=== PATIENT | female | born 1935 | race Caucasian/White ===

== ENCOUNTER 2020-04-02 07:34 | Outpatient (CLI) | payer MEDICARE, OTHER ==
[2020-04-02 14:18] LABS: Hemoglobin 10.5 g/dL (12.0-16.0); Mean Corpuscular HGB CONC 30.7 g/dL (32.0-36.0); Mean Corpuscular Hemoglobin 25.8 pg (27.0-31.0); Mean Corpuscular Volume 84.1 fL (78.0-98.0); Mean Platelet Volume 9.1 fL (7.4-10.4); Platelet Count 282 thou/uL (130-400); RBC Distribution Width 14.6 % (11.5-14.5); Red Blood Cell (RBC) Count 4.05 mill/uL (4.20-5.40); White Blood Cell (WBC) Count 6.2 thou/uL (4.8-10.8)
[2020-04-02 14:26] LABS: PTT 29.4 sec (22.9-36.1); Prothrombin Time 13.4 sec (12.0-14.7)
[2020-04-03 16:05] LABS: SARS-CoV-2 MS2 Positive; SARS-CoV-2 N Gene Negative; SARS-CoV-2 S Gene Negative; SARS-CoV-2 by NAA Not Detected (NotDetected); SARS-CoV-2 orf1ab Negative
== END 2020-04-02 07:35 | disposition home or self-care (01) ==
LOC: LABBT 07:34
PROVIDERS: ATTEND Neurological Surgery
DX: Z01.812 Encounter for preprocedural laboratory examination (principal); Z20.828 Contact with and (suspected) exposure to other viral communicable diseases; M48.061 Spinal stenosis, lumbar region without neurogenic claudication
CPT/HCPCS: 85027; 85610; 85730; U0003; 87635

== ENCOUNTER 2020-04-05 05:44 | Day surgery (SDC) | payer MEDICARE ==
--- NOTE | 2020-04-03 17:24 | HP ---
REASON FOR HISTORY AND PHYSICAL: Surgery on 04/05/2020, case #[id number]. HISTORY OF PRESENT ILLNESS: Ms. Hebert is an 84-year-old female with chief complaint of lower back and leg pain (right greater than left) for 2 years. Pain radiates to her gluteal muscles, thighs, and calf especially when standing more than 5 minutes. Sitting and leaning forward alleviates her pain. She does report there is some weakness in her legs. Denies bowel or bladder dysfunction. REVIEW OF SYSTEMS: CONSTITUTIONAL: Denies fever or chills. ENT: Denies change in vision or hearing. CARDIAC: Denies chest pain, shortness of breath, or diaphoresis. PULMONARY: Denies shortness of breath, cough, or hemoptysis. GI: Denies fecal incontinence, abdominal pain, nausea, vomiting, diarrhea, change in stool formation and consistency. : Denies urinary incontinence, trouble with urination, frequency of urination, or bloody urine. SKIN: Denies skin rash, bruising, bleeding, or skin masses. MUSCULOSKELETAL: As per history of present illness. NEUROLOGICAL: As per history of present illness. PSYCHOLOGICAL: Denies anxiety, depression, or behavior changes. MEDICATIONS: 1. Hydrocodone/acetaminophen 5/325 mg. 2. Hydralazine 50 mg. 3. Eliquis 5 mg. 4. Gabapentin 100 mg. 5. Metoprolol 25 mg. 6. Amlodipine 10 mg. 7. Fluzone 0.5 mL suspension. 8. Valsartan 160 mg. 9. Pioglitazone 15 mg. 10. Metformin 1000 mg. 11. Ursodiol 300 mg. MEDICAL HISTORY: 1. Arthritis. 2. Chronic pain. 3. Diabetes. 4. Heart disease. 5. High blood pressure. 6. Pacemaker. SURGICAL HISTORY: 1. Bilateral knee surgery. 2. Pacemaker. FAMILY HISTORY: Father , diagnosed with diabetes. Mother . Children alive. ALLERGIES: NO KNOWN DRUG ALLERGIES. HOSPITALIZATIONS: Bilateral knee surgery. PHYSICAL EXAMINATION: VITAL SIGNS: Weight 162 pounds, height 71 inches, BMI 22.59. HEENT: Pupils are equal. Extraocular movements are intact. NECK: Soft and supple. No masses are noted. Range of motion is intact and nonpainful. NEUROLOGICAL: Awake, alert, and oriented x3. Memory, attention, fund of knowledge, and language are normal. Cranial nerves are normal. Gait and station are normal. Motor exam; normal strength in the iliopsoas, quadriceps, hamstrings, anterior tib, EHL, gastrocs, and toe flexors. Sensory exam; mild stocking distribution in foot, numbness. IMAGING DATA: L-spine myelogram; there is [id number] stenosis at L3-L4 and L4-L5. L-spine x-ray, flexion-extension is stable. ASSESSMENT: 1. Spondylolisthesis without myopathy or radiculopathy. 2. 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 PLAN: 1. Laminectomy L3-L5. 2. Stop Eliquis 1 week prior to surgery. May resume 2 weeks after surgery. 3. Anesthesia clearance. 4. Preop labs; CBC, PT, PTT, INR, COVID-19 testing. INFORMED CONSENT: We discussed the indications, risks, benefits, alternatives, and expected results from surgery. The risks discussed included, but were not limited to, bleeding, infection, CSF leak, nerve damage, weakness, incontinence, cauda equina injury, arachnoiditis, paralysis, ventilator dependency, wheelchair dependency, loss of vision, cardiopulmonary complications of anesthesia, or . Long-term complications discussed included, but were not limited to, spinal instability and future surgery. She understands the risks and is willing to proceed. Job ID: [id number] [facility]
[2020-04-04 08:53] VITALS: BMI 23.7
[2020-04-05] MEDS ORDERED: Thrombin 5000 UNITS/5 ML VIAL ONE (06:11)
[2020-04-05] MEDS ORDERED: Bupivacaine HCl 0.5%/Epinephrine 1:200,000/PF 30 ml Vial ONE (06:11)
[2020-04-05] MEDS ORDERED: Fentanyl 100 MCG/2 ML VIAL ONE ×3 (06:53→10:44)
[2020-04-05 07:07] LABS: Anion Gap 17 mmol/L (10-20); BUN (Urea Nitrogen) 27 mg/dL (9.8-20.1); Calc. Creatinine Clearance 52 mL/min (70-130); Calcium 9.8 mg/dL (7.8-10.44); Carbon Dioxide 21 mmol/L (23-31); Chloride 103 mmol/L (98-107); Estimated GFR-MDRD 56; Glucose 125 mg/dL (83-110); Potassium 4.3 mmol/L (3.5-5.1); Sodium 137 mmol/L (136-145)
[2020-04-05] MEDS ORDERED: HYDROmorphone 2 MG/ML VIAL SLOW IVP PRN (08:12)
[2020-04-05] MEDS ORDERED: Promethazine HCl 25 MG/ML VIAL SLOW IVP PRN (08:12)
[2020-04-05] MEDS ORDERED: Ondansetron HCl/PF 4 MG/2 ML Vial IVP PRN (08:12)
[2020-04-05] MEDS ORDERED: SUGAMMADEX SODIUM 200 MG/2 ML VIAL ONE (09:12)
--- NOTE | 2020-04-05 09:59 | OP ---
DATE OF PROCEDURE: 04/05/2020 SOCK FOLDER: Murtaza Murray PA-C PREOPERATIVE INDICATION: Treat pain and prevent neurological deterioration. PREOPERATIVE DIAGNOSIS: Lumbar stenosis with neurogenic claudication at L3-L4 and L4-L5. POSTOPERATIVE DIAGNOSIS: Lumbar stenosis with neurogenic claudication at L3-L4 and L4-L5. PROCEDURES PERFORMED: Decompressive laminectomy, medial facetectomy, foraminotomy at L3-L4 and L4-L5. PREOPERATIVE MEDICATION: Ancef 2 g IV. DRAIN NUMBER: Zero. DRAIN TYPE: None. DESCRIPTION OF PROCEDURE: The patient was brought to the operating room. General endotracheal anesthesia was induced. The patient was positioned prone on the operating table with the chest and hips supported by gel-filled chest rolls. A lateral fluoro radiograph was used to plan our incision. The lumbar skin was sterilely prepped and draped. We opened with a 10-blade knife and controlled bleeding with bipolar and monopolar cautery. We used monopolar cautery to dissect through subcutaneous tissues to the thoracodorsal fascia. The fascia was incised in the midline and the paraspinal muscles were reflected off the spinous process and lamina of L3, L4, and L5. A lateral fluoro radiograph confirmed the levels upon which we were operating. A self-retaining retractor was placed. An Adson rongeur was used to remove the spinous process of L3, L4, and the top of L5. We used Kerrison rongeurs to fashion a laminectomy down the midline. In order to decompress the lateral recesses (where most of the compression was), we needed to perform medial facetectomies with Kerrison. We did so at L3-L4 and L4-L5. We performed foraminotomies over the exiting L3, L4, and L5 nerve roots to ensure a ball probe could pass through the foramen without impingement. We irrigated with bacitracin irrigation. We controlled epidural bleeding with gentle bipolar cautery. We waxed the bone edges. We irrigated with bacitracin irrigation. We treated the wound with vancomycin powder. We closed in anatomical layers. We applied a sterile dressing. This was a clean case, no contamination. Job ID: [id number]
[2020-04-05] MEDS ORDERED: Promethazine HCl 25 MG/ML VIAL IM PRN (10:26)
[2020-04-05] MEDS ORDERED: Acetaminophen 325 MG TAB PO PRN (10:26)
[2020-04-05] MEDS ORDERED: Mag-Al 1200 mg/1200 mg/30 ML UDCUP PO PRN (10:26)
[2020-04-05] MEDS ORDERED: Scopolamine 1.5 mg/72 hour Patch TD PRN (10:26)
[2020-04-05] MEDS ORDERED: diphenhydrAMINE 50 MG/ML VIAL IVP PRN (10:26)
[2020-04-05] MEDS ORDERED: Promethazine 25 MG TAB PO PRN (10:26)
[2020-04-05] MEDS ORDERED: tiZANidine HCl 4 MG TAB PO PRN (10:26)
[2020-04-05] MEDS ORDERED: Acetaminophen/Codeine 30-300mg Tablet PO PRN (10:26)
[2020-04-05] MEDS ORDERED: Morphine 2 MG/ML VIAL SLOW IVP PRN (10:26)
[2020-04-05] MEDS ORDERED: traMADol HCl 50 MG TAB PO PRN (10:26)
[2020-04-05] MEDS ORDERED: Milk Of Magnesia 30 ML UDCUP PO PRN (10:26)
[2020-04-05] MEDS ORDERED: Rocuronium Bromide 10 MG/ML (10ML VIAL) ONE (11:33)
[2020-04-05] MEDS ORDERED: Lidocaine 1% PF 5 ML VIAL ONE (11:33)
[2020-04-05] MEDS ORDERED: Ondansetron PF 4 MG/2 ML Vial ONE (11:33)
[2020-04-05] MEDS ORDERED: PROPOFOL 200 MG/20 ML VIAL ONE (11:33)
[2020-04-05] MEDS ORDERED: Ketorolac Tromethamine 30 MG/ML VIAL ONE (11:33)
[2020-04-05] MEDS ORDERED: Dexamethasone 20 MG/5 ML VIAL ONE (11:33)
[2020-04-05] MEDS: CEFAZOLIN 2 GM in Premix Bag 1 BAG IVPB SCH ×2 (16:10→23:44)
[2020-04-05] MEDS: Sodium Chloride 0.9% 1,000 ML IV SCH (16:11)
[2020-04-05] MEDS: Ursodiol 300 MG CAP PO SCH (21:50)
[2020-04-05] MEDS: hydrALAZINE 25 MG TAB PO SCH (21:50)
[2020-04-05] MEDS: Metoprolol Tartrate 25 MG TAB PO SCH (21:50)
[2020-04-06] MEDS: Sodium Chloride 0.9% 1,000 ML IV SCH ×2 (05:53→17:45)
[2020-04-06] MEDS: Metoprolol Tartrate 25 MG TAB PO SCH (07:56)
[2020-04-06] MEDS: hydrALAZINE 25 MG TAB PO SCH (07:56)
[2020-04-06] MEDS: metFORMIN 500 MG TAB PO SCH ×2 (07:56→17:59)
[2020-04-06] MEDS: Ursodiol 300 MG CAP PO SCH (07:57)
[2020-04-06] MEDS ORDERED: Amlodipine 10 MG TAB PO SCH (09:00)
[2020-04-06] MEDS ORDERED: FLU VACC QS2020-21(65YR UP)/PF 240 MCG/0.7 ML SYRINGE IM ONE (09:00)
[2020-04-06] MEDS ORDERED: Pioglitazone HCl 15 MG TAB PO SCH (09:00)
[2020-04-06 16:03] VITALS: BP 113/72; TEMP 97.4
--- NOTE | 2020-04-08 12:39 | DIS ---
DATE OF ADMISSION: 04/05/2020 DATE OF DISCHARGE: 04/06/2020 Ms. Hebert was admitted to the hospital by Dr. Vasquez on April 05, 2020, discharge date April 06, 2020. ADMISSION DIAGNOSIS: Status post lumbar decompression. DISCHARGE DIAGNOSIS: Status post lumbar decompression. HOSPITAL COURSE: Ms. Hebert had an uncomplicated hospital stay. Her postoperative pains were well controlled with our normal regimen of IV and p.o. medications. She ambulated early and often and ultimately discharged in excellent condition with outpatient followup planned in 2 weeks. Job ID: [id number]
== END 2020-04-06 18:40 | disposition home or self-care (01) ==
LOC: SDC 05:44 → SURG B 10:26 → SDC 04-06 18:40
PROVIDERS: ATTEND Neurological Surgery
PROC: 00NY0ZZ Release Lumbar Spinal Cord, Open Approach (ICD-10-PCS; principal; 2020-04-05)
DX: M48.062 Spinal stenosis, lumbar region with neurogenic claudication (principal); M43.16 Spondylolisthesis, lumbar region; I10 Essential (primary) hypertension; I48.91 Unspecified atrial fibrillation; E11.9 Type 2 diabetes mellitus without complications; M16.9 Osteoarthritis of hip, unspecified; Z79.01 Long term (current) use of anticoagulants; Z79.84 Long term (current) use of oral hypoglycemic drugs; Z79.899 Other long term (current) drug therapy; Z87.891 Personal history of nicotine dependence; Z95.0 Presence of cardiac pacemaker
CPT/HCPCS: 76000; 80048; 93005; 93010; J0690; J1100; J1885; J2405; J2704; J3010; J3370; J3490